=== PATIENT | female | born 1970 | race African-American/Black ===

== ENCOUNTER 2022-04-13 16:34 | Inpatient (IN) | payer MEDICARE, MEDICAID ==
[~2022-04-13] VITALS: Ht 152.4 cm; Wt 74.8 kg
[2022-04-13] MEDS ORDERED: METOCLOPRAMIDE HCL 10MG/2ML VIAL IV STA (17:46)
[2022-04-13] MEDS ORDERED: KETOROLAC 30MG/ML VIAL IV STA (17:46)
[2022-04-13] MEDS ORDERED: SODIUM CHLORIDE 0.9% 1,000 ML IV ONE (18:00)
[2022-04-13 18:06] LABS: EOSINOPHILS % 0.1 % (0.0-5.0); HEMATOCRIT. 43.4 % (36.0-48.0); LYMPHOCYTES % 30.6 % (20.0-50.0); MEAN CORPUSCULAR HEMOGLOBIN 30.6 pg (28.0-32.0); MEAN CORPUSCULAR VOLUME 88.9 fL (81.0-99.0); MEAN PLATELET VOLUME 7.3 fl (7.4-10.4); MONOCYTES % 4.8 % (2.0-8.0); NEUTROPHILS % 63.5 % (40.0-76.0); PLATELET 304 x1000/uL (130-400); RED BLOOD CELL COUNT 4.89 mill/uL (4.2-5.4); RED CELL DISTRIBUTION WIDTH 13.9 % (11.6-14.6)
[2022-04-13 18:15] LABS: HCG SCREEN NEGATIVE
[2022-04-13 18:21] LABS: CHLORIDE 101 mEq/L (98-107)
[2022-04-13] MEDS ORDERED: HALOPERIDOL LACTATE 5MG/ML VIAL IM ONE (19:45)
[2022-04-13] MEDS ORDERED: LORAZEPAM 2MG/ML CPJ IV ONE (20:30)
[2022-04-13] MEDS ORDERED: NA PHOS,M-B/NA PHOS,DI-BA ENEMA 118ML PR ONE (20:30)
[2022-04-13] MEDS ORDERED: MORPHINE SULFATE 2 MG/ML CPJ (NOT FOR IM USE) IV ONE (20:30)
[2022-04-13] MEDS ORDERED: ACETAMINOPHEN 325MG TABLET PO PRN ×2 (22:45)
[2022-04-13] MEDS ORDERED: IPRATROPIUM/ALBUTEROL 0.5-3(2.5)MG/3ML NEB HHN PRN (22:45)
[2022-04-13] MEDS ORDERED: GUAIFENESIN 200MG/10ML SUGAR FREE UDC PO PRN (22:45)
[2022-04-13] MEDS ORDERED: ONDANSETRON HCL 4MG/2ML INJ IV PRN (22:45)
[2022-04-13] MEDS ORDERED: CLONIDINE 0.1MG TABLET PO PRN (22:45)
[2022-04-13] MEDS ORDERED: NA PHOS,M-B/NA PHOS,DI-BA ENEMA 118ML PR PRN (22:45)
[2022-04-13] MEDS ORDERED: HYDROCODONE/ACETAMINOPHEN 5/325MG TABLET PO PRN (22:45)
[2022-04-13] MEDS ORDERED: DOCUSATE SODIUM 100MG CAPSULE PO PRN (22:45)
[2022-04-13] MEDS ORDERED: MAGNESIUM/ALUMINUM HYDROXIDE/SIMETHICONE 30ML UDC PO PRN (22:45)
[2022-04-13] MEDS ORDERED: DEXTROSE 50% WATER 50ML SYRINGE IV PRN (23:15)
[2022-04-13] MEDS: PANTOPRAZOLE SODIUM 40 MG/VIAL IV SCH (23:44)
[2022-04-13] MEDS: AMLODIPINE 5MG TABLET PO SCH (23:45)
[2022-04-13] MEDS ORDERED: NALOXONE HCL 0.4MG/ML VIAL IV PRN (23:45)
[2022-04-13] MEDS: SODIUM CHLORIDE 0.9% 1,000 ML IV SCH (23:45)
[2022-04-13] MEDS ORDERED: HYDROCODONE/APAP 7.5/325MG 1 TAB TABLET PO PRN (23:45)
[2022-04-14 01:15] VITALS: BP 153/73
[2022-04-14] MEDS: METOCLOPRAMIDE HCL 10MG/2ML VIAL IV SCH ×2 (01:32→06:55)
[2022-04-14 02:29] VITALS: BP 153/73
[2022-04-14 04:00] VITALS: BP 160/85
[2022-04-14] MEDS ORDERED: LACTULOSE 20G/30ML UDC PO SCH (06:00)
[2022-04-14 07:02] LABS: HEMATOCRIT. 39.6 % (36.0-48.0); HEMOGLOBIN. 13.7 g/dL (12.0-16.0); MEAN CORPUSCULAR HEMOGLOBIN 30.3 pg (28.0-32.0); MEAN CORPUSCULAR VOLUME 87.8 fL (81.0-99.0); PLATELET 293 x1000/uL (130-400); RED BLOOD CELL COUNT 4.52 mill/uL (4.2-5.4)
[2022-04-14] MEDS ORDERED: SUCRALFATE 1G TABLET PO SCH (07:20)
[2022-04-14] MEDS ORDERED: BLOOD SUGAR DIAGNOSTIC STRIP TEST SCH (07:20)
[2022-04-14] MEDS ORDERED: INSULIN LISPRO 100 UNITS/ML SUBCUT SCH (07:50)
[2022-04-14 08:00] VITALS: BP 144/78
[2022-04-14] MEDS: SODIUM CHLORIDE 0.9% 1,000 ML IV SCH (08:45)
[2022-04-14] MEDS: AMLODIPINE 5MG TABLET PO SCH (09:00)
[2022-04-14] MEDS: PANTOPRAZOLE SODIUM 40 MG/VIAL IV SCH (09:00)
[2022-04-14 09:58] LABS: CHLORIDE 104 mEq/L (98-107)
[2022-04-14 10:06] LABS: HDL CHOLESTEROL 24 mg/dL (40-59); LDL CHOLESTEROL 79 mg/dL (5-100)
[2022-04-14 16:35] LABS: PLATELET ESTIMATE NORMAL
== END 2022-04-14 10:52 | disposition left against medical advice (07) | DRG 392 ==
LOC: ER 16:34 → EDBEDREQ 21:24 → EDBEDREQTM 21:24 → SUPCPDRO 22:38 → 6EST 23:06 → ENRESERV 23:25
PROVIDERS: ADMIT Internal Medicine; ATTEND Internal Medicine
DX: A08.4 Viral intestinal infection, unspecified (principal); K56.41 Fecal impaction; K21.9 Gastro-esophageal reflux disease without esophagitis; J44.9 Chronic obstructive pulmonary disease, unspecified; K76.0 Fatty (change of) liver, not elsewhere classified; E83.59 Other disorders of calcium metabolism; E11.65 Type 2 diabetes mellitus with hyperglycemia; I10 Essential (primary) hypertension; Z53.29 Procedure and treatment not carried out because of patient's decision for other reasons; Z90.49 Acquired absence of other specified parts of digestive tract; Z79.899 Other long term (current) drug therapy
CPT/HCPCS: 36415; 74176; 80053; 80061; 82962; 83036; 84703; 85025; 93005; 99285; C9113; J1630; J1885; J2060; J2270; J2765; J7030

== ENCOUNTER 2022-12-16 02:55 | Emergency (ER) | payer MEDICARE, MEDICAID ==
[~2022-12-16] VITALS: Ht 152.4 cm; Wt 73.0 kg
[2022-12-16] MEDS ORDERED: MORPHINE SULFATE 4 MG/ML CPJ (NOT FOR IM USE) IV STA ×2 (03:02→05:01)
[2022-12-16] MEDS ORDERED: ONDANSETRON HCL 4MG/2ML INJ IV STA (03:02)
[2022-12-16] MEDS ORDERED: PANTOPRAZOLE SODIUM 40 MG/VIAL IV ONE (03:15)
[2022-12-16] MEDS ORDERED: PREDNISONE 20MG TABLET PO ONE (03:30)
[2022-12-16] MEDS ORDERED: ALBUTEROL (0.083%) 2.5MG/3ML NEB HHN ONE (03:30)
[2022-12-16 05:28] LABS: CLARITY URINE CLEAR (CLEAR); COLOR URINE YELLOW (YELLOW); KETONES URINE 1+ (NEGATIVE); LEUKOCYTE ESTERASE URINE NEGATIVE (NEGATIVE); NITRITE URINE NEGATIVE (NEGATIVE); OCCULT BLOOD URINE NEGATIVE (NEGATIVE); PROTEIN URINE NEGATIVE (NEGATIVE); SPECIFIC GRAVITY URINE 1.024 (1.005-1.030)
[2022-12-16 05:30] LABS: BASOPHILS % 0.7 % (0.0-2.0); EOSINOPHILS % 0.3 % (0.0-5.0); HEMATOCRIT. 41.2 % (36.0-48.0); HEMOGLOBIN. 14.1 g/dL (12.0-16.0); LYMPHOCYTES % 40.5 % (20.0-50.0); MEAN CORPUSCULAR VOLUME 87.8 fL (81.0-99.0); MEAN PLATELET VOLUME 7.7 fl (7.4-10.4); MONOCYTES % 6.3 % (2.0-8.0); NEUTROPHILS % 52.2 % (40.0-76.0); PLATELET 313 x1000/uL (130-400); RED BLOOD CELL COUNT 4.69 mill/uL (4.2-5.4); RED CELL DISTRIBUTION WIDTH 14.5 % (11.6-14.6)
[2022-12-16 05:37] LABS: CHLORIDE 103 mEq/L (98-107)
[2022-12-16] MEDS ORDERED: ONDA4TAB50 MT (07:53)
[2022-12-16] MEDS ORDERED: OMEP40CA20 MT (07:53)
[2022-12-16 08:09] VITALS: BP 121/78
== END 2022-12-16 08:34 | disposition home or self-care (01) ==
LOC: ER 02:55
DX: R07.89 Other chest pain (principal); R10.13 Epigastric pain; J44.1 Chronic obstructive pulmonary disease with (acute) exacerbation; I10 Essential (primary) hypertension; E11.9 Type 2 diabetes mellitus without complications
CPT/HCPCS: 36415; 71045; 74176; 80053; 81003; 83690; 84484; 85025; 86850; 86900; 86901; 93005; 94640; 96374; 96375; 96376; 99285; C9113; J2270; J2405; J7512